=== PATIENT | female | born 1995 | race Caucasian/White ===

== ENCOUNTER → 2024-04-03 12:55 | Outpatient (REF) | payer BC, SELFPAY | LOC: HWRAD 12:55 | PROVIDERS: ATTENDING PHYSICIAN Nurse Practitioner; FAMILY PHYSICIAN Nurse Practitioner | DX: E04.1 Nontoxic single thyroid nodule (principal) | CPT/HCPCS: 76536 ==

== ENCOUNTER → 2024-08-28 07:18 | Outpatient (REF) | payer BC, SELFPAY | LOC: HWRCS 07:18 | PROVIDERS: ATTENDING PHYSICIAN Internal Medicine Cardiovascular Disease; FAMILY PHYSICIAN Nurse Practitioner | DX: R00.2 Palpitations (principal) | CPT/HCPCS: 93306 ==

== ENCOUNTER → 2024-09-01 11:20 | Outpatient (REF) | payer BC, SELFPAY | LOC: PNTC 11:20 | PROVIDERS: ATTENDING PHYSICIAN Obstetrics & Gynecology | DX: O10.119 Pre-existing hypertensive heart disease complicating pregnancy, unspecified trimester (principal); O99.210 Obesity complicating pregnancy, unspecified trimester; O98.519 Other viral diseases complicating pregnancy, unspecified trimester; G96.00 Cerebrospinal fluid leak, unspecified | CPT/HCPCS: 76801; 76813 ==

== ENCOUNTER → 2024-09-25 08:47 | Outpatient (REF) | payer BC, SELFPAY | LOC: PNTC 08:47 | PROVIDERS: ATTENDING PHYSICIAN Obstetrics & Gynecology | DX: O10.019 Pre-existing essential hypertension complicating pregnancy, unspecified trimester (principal); U07.1 COVID-19; Z98.2 Presence of cerebrospinal fluid drainage device | CPT/HCPCS: 76805 ==

== ENCOUNTER → 2024-10-21 15:58 | Outpatient (REF) | payer BC, SELFPAY | LOC: PNTC 15:58 | PROVIDERS: ATTENDING PHYSICIAN Obstetrics & Gynecology | DX: O10.119 Pre-existing hypertensive heart disease complicating pregnancy, unspecified trimester (principal); O99.210 Obesity complicating pregnancy, unspecified trimester | CPT/HCPCS: 76811; 76817 ==

== ENCOUNTER → 2024-11-06 15:56 | Outpatient (REF) | payer BC, SELFPAY | LOC: PNTC 15:56 | PROVIDERS: ATTENDING PHYSICIAN Obstetrics & Gynecology | DX: O99.212 Obesity complicating pregnancy, second trimester (principal); E66.01 Morbid (severe) obesity due to excess calories; O35.5XX0 Maternal care for (suspected) damage to fetus by drugs, not applicable or unspecified; O10.012 Pre-existing essential hypertension complicating pregnancy, second trimester; O09.92 Supervision of high risk pregnancy, unspecified, second trimester | CPT/HCPCS: 76815 ==

== ENCOUNTER → 2024-11-18 17:00 | Outpatient (REF) | payer BC, SELFPAY | LOC: PNTC 17:00 | PROVIDERS: ATTENDING PHYSICIAN Obstetrics & Gynecology | DX: O10.119 Pre-existing hypertensive heart disease complicating pregnancy, unspecified trimester (principal); O99.210 Obesity complicating pregnancy, unspecified trimester; Z98.2 Presence of cerebrospinal fluid drainage device | CPT/HCPCS: 76816; 76817 ==

== ENCOUNTER → 2024-12-16 16:35 | Outpatient (REF) | payer BC, SELFPAY | LOC: PNTC 16:35 | PROVIDERS: ATTENDING PHYSICIAN Obstetrics & Gynecology | DX: O10.119 Pre-existing hypertensive heart disease complicating pregnancy, unspecified trimester (principal); O99.210 Obesity complicating pregnancy, unspecified trimester; G96.00 Cerebrospinal fluid leak, unspecified | CPT/HCPCS: 76816 ==

== ENCOUNTER → 2025-01-20 17:00 | Outpatient (REF) | payer BC, SELFPAY | LOC: PNTC 17:00 | PROVIDERS: ATTENDING PHYSICIAN Student in an Organized Health Care Education/Training Program | DX: O99.210 Obesity complicating pregnancy, unspecified trimester (principal) | CPT/HCPCS: 59025; 76816 ==

== ENCOUNTER → 2025-01-27 16:53 | Outpatient (REF) | payer BC, SELFPAY | LOC: PNTC 16:53 | PROVIDERS: ATTENDING PHYSICIAN Student in an Organized Health Care Education/Training Program | DX: O99.210 Obesity complicating pregnancy, unspecified trimester (principal) | CPT/HCPCS: 59025; 76815 ==

== ENCOUNTER → 2025-02-03 15:30 | Outpatient (REF) | payer BC, SELFPAY | LOC: PNTC 15:30 | PROVIDERS: ATTENDING PHYSICIAN Student in an Organized Health Care Education/Training Program | DX: O99.210 Obesity complicating pregnancy, unspecified trimester (principal) | CPT/HCPCS: 59025; 76815 ==

== ENCOUNTER 2025-02-04 10:26 | Observation (INO) | payer BC, SELFPAY ==
[2025-02-04 10:33] VITALS: BMI 49.3
[2025-02-04 10:46] VITALS: BP 112/65
== END 2025-02-04 15:29 | disposition home or self-care (01) ==
LOC: LDRP 10:26
PROVIDERS: ADMITTING PHYSICIAN Student in an Organized Health Care Education/Training Program; FAMILY PHYSICIAN Nurse Practitioner
DX: O47.03 False labor before 37 completed weeks of gestation, third trimester (principal); O10.913 Unspecified pre-existing hypertension complicating pregnancy, third trimester; Z3A.35 35 weeks gestation of pregnancy
CPT/HCPCS: 59025; 87070; G0378

== ENCOUNTER → 2025-02-10 17:03 | Outpatient (REF) | payer BC, SELFPAY | LOC: PNTC 17:03 | PROVIDERS: ATTENDING PHYSICIAN Student in an Organized Health Care Education/Training Program; OTHER PHYSICIAN Obstetrics & Gynecology | DX: O10.119 Pre-existing hypertensive heart disease complicating pregnancy, unspecified trimester (principal); O99.210 Obesity complicating pregnancy, unspecified trimester; Z98.2 Presence of cerebrospinal fluid drainage device | CPT/HCPCS: 59025; 76815 ==

== ENCOUNTER → 2025-02-17 17:01 | Outpatient (REF) | payer BC, SELFPAY | LOC: PNTC 17:01 | PROVIDERS: ATTENDING PHYSICIAN Student in an Organized Health Care Education/Training Program | DX: O99.210 Obesity complicating pregnancy, unspecified trimester (principal) | CPT/HCPCS: 59025; 76816 ==

== ENCOUNTER 2025-02-21 00:49 | Observation (INO) | payer BC, SELFPAY ==
[2025-02-21 01:03] VITALS: BP 126/70; BMI 48.6
== END 2025-02-21 01:55 | disposition home or self-care (01) ==
LOC: LDRP 00:49
PROVIDERS: ADMITTING PHYSICIAN Student in an Organized Health Care Education/Training Program
DX: O36.8130 Decreased fetal movements, third trimester, not applicable or unspecified (principal); Z3A.38 38 weeks gestation of pregnancy
CPT/HCPCS: 36415; 86850; 86900; 86901; G0378

== ENCOUNTER → 2025-02-24 17:00 | Outpatient (REF) | payer BC, SELFPAY | LOC: PNTC 17:00 | PROVIDERS: ATTENDING PHYSICIAN Student in an Organized Health Care Education/Training Program | DX: O99.210 Obesity complicating pregnancy, unspecified trimester (principal) | CPT/HCPCS: 59025; 76815 ==

== ENCOUNTER 2025-03-03 19:28 | Inpatient (IN) | payer BC, SELFPAY ==
[2025-03-03 20:26] VITALS: BP 110/69; BMI 47.4
[2025-03-03 20:49] LABS: Hematocrit 37.8 % (37.0-47.0); Hemoglobin 13.1 g/dL (12.0-16.0); Mean Corp Hgb Conc. 34.7 g/dL (33.0-37.0); Mean Corpuscular Volume 86.3 fL (81.0-99.0); Nucleated Red Blood Cells % 0 %; Platelet Count 162 10^3/uL (130-400); Red Cell Dist. Width 14.5 % (11.5-14.5)
[2025-03-03] MEDS: CYTOTEC 25 MICROGRAM VAG (21:43)
[2025-03-04] MEDS: CYTOTEC PO ×2 (02:00→07:01)
[2025-03-04] MEDS: LR 1000 IV (02:24)
[2025-03-04] MEDS: CYTOTEC 50 MICROGRAM PO ×4 (09:15→22:49)
[2025-03-04] MEDS: TRANDATE 100 MG PO ×2 (10:14→20:13)
[2025-03-04] MEDS: FLUSH (NSS) 1 FLUSH IV (16:52)
[2025-03-04] MEDS: ZOFRAN 4 MG IV (16:52)
[2025-03-04] MEDS: PROZAC 40 MG PO (20:22)
[2025-03-04] MEDS: STADOL 1 MG IV (22:40)
[2025-03-05] MEDS: STADOL 1 MG IV (00:46)
[2025-03-05] MEDS: LR 1000 IV ×3 (02:20→12:18)
[2025-03-05] MEDS: FENTANYL/BUPIVACAINE 100 EPIDURAL ×3 (03:22→21:15)
[2025-03-05] MEDS: SUBLIMAZE 100 MCG EPIDURAL (03:22)
[2025-03-05] MEDS: ZOFRAN 4 MG IV ×3 (03:54→18:19)
[2025-03-05] MEDS: PITOCIN 30 UNITS/NSS 500 ML IV (06:46)
[2025-03-05] MEDS: TRANDATE PO (08:15)
[2025-03-05] MEDS: PROZAC 40 MG PO (18:18)
[2025-03-05] MEDS: TRANDATE 100 MG PO (19:53)
[2025-03-06] MEDS: ZOFRAN 4 MG IV ×2 (01:43→12:16)
[2025-03-06] MEDS: FENTANYL/BUPIVACAINE 100 EPIDURAL (04:58)
[2025-03-06] MEDS: LR 1000 IV ×2 (05:00→11:25)
[2025-03-06] MEDS: BICITRA 30 ML PO (07:32)
[2025-03-06] MEDS: TYLENOL 975 MG PO (07:32)
[2025-03-06] MEDS: ANCEF 15 MG IV (07:32)
[2025-03-06] MEDS: ZITHROMAX INFUSION 250 IV (07:36)
[2025-03-06] MEDS: TRANEXAMIC ACID 100 IV (08:15)
[2025-03-06] MEDS: PITOCIN 30 UNITS/NSS 500 ML IV (09:05)
[2025-03-06] MEDS: TORADOL 15 MG IV ×3 (09:53→22:37)
[2025-03-06] MEDS: TRANDATE PO (10:14)
[2025-03-06 12:46] LABS: ALT (SGPT) 18 U/L (0-35); AST (SGOT) 21 U/L (14-36); Albumin 3.2 g/dl (3.5-5.0); Alkaline Phosphatase 94 U/L (38-126); Blood Urea Nitrogen 5 mg/dl (7-17); Calcium 8.9 mg/dl (8.4-10.2); Carbon Dioxide 21 mmol/L (22-30); Chloride 108 mmol/L (98-107); Estimated Creatinine Clearance > 125 ml/min; Glucose 101 mg/dl (70-99); Potassium 4.0 mmol/L (3.5-5.1); Sodium 134 mmol/L (135-145); Total Protein 5.5 g/dl (6.3-8.2); eGFR > 60.00
[2025-03-06 13:03] LABS: Hematocrit 35.0 % (37.0-47.0); Hemoglobin 12.2 g/dL (12.0-16.0); Mean Corp Hgb Conc. 34.9 g/dL (33.0-37.0); Mean Corpuscular Volume 86.8 fL (81.0-99.0); Platelet Count 146 10^3/uL (130-400); Red Cell Dist. Width 14.1 % (11.5-14.5)
[2025-03-06] MEDS: BENADRYL 25 MG IV (13:31)
[2025-03-06] MEDS: TRANDATE 100 MG PO (20:15)
[2025-03-06] MEDS: COLACE 100 MG PO (20:15)
[2025-03-06] MEDS: PROZAC 40 MG PO (20:16)
[2025-03-06] MEDS: PRENATAL PLUS 1 TABLET PO (22:36)
[2025-03-06] MEDS: BENADRYL 25 MG PO (22:46)
[2025-03-07] MEDS: TORADOL 15 MG IV (03:51)
[2025-03-07 04:48] LABS: Hematocrit 34.0 % (37.0-47.0); Hemoglobin 11.2 g/dL (12.0-16.0); Mean Corp Hgb Conc. 32.9 g/dL (33.0-37.0); Mean Corpuscular Volume 89.9 fL (81.0-99.0); Platelet Count 160 10^3/uL (130-400); Red Cell Dist. Width 14.4 % (11.5-14.5)
[2025-03-07] MEDS: TRANDATE 100 MG PO (08:45)
[2025-03-07] MEDS: COLACE 100 MG PO ×2 (08:45→20:09)
--- NOTE | 2025-03-07 09:06 | W.PN.ANS.POP ---
Anesthesia Post Operative
- Anesthesia Post Op Note
Vital Signs Stable-See Nursing Note: Yes
Airway Patent: Yes
Adequate Pain Control: Yes
Change in Mental Status: No
Current Postoperative Nausea & Vomiting: No
Anesthesia Complications: No
General Anesthetic Recall: No
Unplanned Admission: No
Post Op Hydration Adequate: Yes
[2025-03-07] MEDS: MOTRIN 600 MG PO (14:03)
[2025-03-07] MEDS: TYLENOL 650 MG PO (14:04)
[2025-03-07] MEDS: PROZAC 40 MG PO (17:36)
[2025-03-07] MEDS: TRANDATE PO (20:10)
[2025-03-07] MEDS: PRENATAL PLUS 1 TABLET PO (22:02)
[2025-03-08] MEDS: TYLENOL 650 MG PO ×5 (03:18→21:36)
[2025-03-08] MEDS: MOTRIN 600 MG PO (03:18)
[2025-03-08] MEDS: COLACE 100 MG PO ×2 (08:13→21:34)
[2025-03-08] MEDS: TRANDATE 100 MG PO ×2 (08:14→21:33)
[2025-03-08] MEDS: PROZAC 40 MG PO (17:47)
[2025-03-08] MEDS: PRENATAL PLUS 1 TABLET PO (21:34)
[2025-03-09] MEDS: TRANDATE 100 MG PO (08:52)
[2025-03-09] MEDS: COLACE 100 MG PO (08:55)
--- NOTE | 2025-03-09 09:48 | W.DS.TRANS ---
DC Summary - [employer]
-
Discharge Instructions:
Discharge Diagnosis/Procedures section
Instructions:
Stand-Alone Forms: LDRP Delivery
Changes to Home Medications: No
Discharge Medications:
DC Medications w/original date entered in [facility]
fluoxetine 40 mg capsule (Prozac) 40 mg PO QHS 06/29/23
labetalol 100 mg tablet 100 mg PO BID 02/04/25
prenat.vits,jakub,xdw-iytq-csgub 1 tab PO QHS 02/04/25
acetaminophen 325 mg tablet 650 mg (2 x 325 mg) PO Q4HPRN PRN mild pain #0 tabs 03/09/25
docusate sodium 100 mg capsule 100 mg PO BID #0 caps 03/09/25
ibuprofen 600 mg tablet 600 mg PO Q6HPRN PRN cramps #30 tabs 03/09/25
sennosides 8.6 mg tablet (Tamanna-rafael) 17.2 mg (2 x 8.6 mg) PO HSPRN PRN constipation #0 tabs 03/09/25
simethicone 80 mg chewable tablet 80 mg PO TIDPRN PRN flatulence #0 tabs 03/09/25
Home Medication Changes
Pending Results: No
Total time spent discharging patient (in min): 20
[2025-03-09] MEDS: M-M-R II 0.5 ML SC (10:03)
[2025-03-10 14:03] LABS: Syphilis/T. pallidum Ab Reflex Negative (Negative)
== END 2025-03-09 12:00 | disposition home or self-care (01) | DRG 787 ==
LOC: LDRP 19:28
PROVIDERS: Obstetrics & Gynecology; Student in an Organized Health Care Education/Training Program; ADMITTING PHYSICIAN Obstetrics & Gynecology
PROC: 3E0P7VZ Introduction of Hormone into Female Reproductive, Via Natural or Artificial Opening (ICD-10-PCS; 2025-03-03)
PROC: 0U7C7DJ Dilation of Cervix with Intraluminal Device, Temporary, Via Natural or Artificial Opening (ICD-10-PCS; 2025-03-04)
PROC: 3E0DXGC Introduction of Other Therapeutic Substance into Mouth and Pharynx, External Approach (ICD-10-PCS; 2025-03-04)
PROC: 10H07YZ Insertion of Other Device into Products of Conception, Via Natural or Artificial Opening (ICD-10-PCS; 2025-03-05)
PROC: 10907ZC Drainage of Amniotic Fluid, Therapeutic from Products of Conception, Via Natural or Artificial Opening (ICD-10-PCS; 2025-03-05)
PROC: 10D00Z1 Extraction of Products of Conception, Low, Open Approach (ICD-10-PCS; 2025-03-06)
PROC: 3E0134Z Introduction of Serum, Toxoid and Vaccine into Subcutaneous Tissue, Percutaneous Approach (ICD-10-PCS; 2025-03-09)
DX: O10.92 Unspecified pre-existing hypertension complicating childbirth (principal); G96.00 Cerebrospinal fluid leak, unspecified; O99.354 Diseases of the nervous system complicating childbirth; O62.0 Primary inadequate contractions; Z37.0 Single live birth; Z3A.39 39 weeks gestation of pregnancy; E66.01 Morbid (severe) obesity due to excess calories; E88.819 Insulin resistance, unspecified; F32.A Depression, unspecified; F41.9 Anxiety disorder, unspecified; G43.909 Migraine, unspecified, not intractable, without status migrainosus; G47.30 Sleep apnea, unspecified; G89.29 Other chronic pain; G93.2 Benign intracranial hypertension; K21.9 Gastro-esophageal reflux disease without esophagitis; K58.9 Irritable bowel syndrome, unspecified; O26.893 Other specified pregnancy related conditions, third trimester; O40.3XX0 Polyhydramnios, third trimester, not applicable or unspecified; O99.214 Obesity complicating childbirth; O99.344 Other mental disorders complicating childbirth; O99.284 Endocrine, nutritional and metabolic diseases complicating childbirth; E28.2 Polycystic ovarian syndrome; O99.62 Diseases of the digestive system complicating childbirth; Z14.1 Cystic fibrosis carrier; Z23 Encounter for immunization; Z80.1 Family history of malignant neoplasm of trachea, bronchus and lung; Z80.49 Family history of malignant neoplasm of other genital organs; Z80.52 Family history of malignant neoplasm of bladder; Z82.49 Family history of ischemic heart disease and other diseases of the circulatory system; Z98.2 Presence of cerebrospinal fluid drainage device; Z87.440 Personal history of urinary (tract) infections
CPT/HCPCS: 80053; 85025; 85027; 86780; 86850; 86900; 86901; 87491; 87591; 88307; 90707